=== PATIENT | male | born 1980 ===

== ENCOUNTER → 2021-01-28 | Outpatient (CLI) | payer BC ==
[2021-01-28] VITALS (7 sets, daily range): BP systolic 124–152; BP diastolic 78–90; PULSE 52–60
[~2021-01-28] VITALS: Ht 177.8 cm; Wt 90.3 kg
[~2021-01-28] MED LIST: PREDNISONE 5MG5 MG PO
[2021-01-28 10:30] LABS: INR 1.2 (0.8-3.0); PROTHROMBIN TIME 12.8 SECONDS (9.7-12.8)
--- NOTE | 2021-01-28 10:55 | NUR ---
pt in CT scanner positioned supine for biopsy, Dr Diana in room
--- NOTE | 2021-01-28 11:05 | NUR ---
liver tissue x2 gotten by Dr. Diana put in formulin. Gelfoam used, bandaid over site, pt sits up and transfers to w/c
--- NOTE | 2021-01-28 13:00 | NUR ---
Pt discharged amb. with to car
== END ==
LOC: COL.RAD 09:00
PROVIDERS: Internal Medicine Gastroenterology
DX: R74.8 Abnormal levels of other serum enzymes (principal); D69.3 Immune thrombocytopenic purpura; R76.8 Other specified abnormal immunological findings in serum; M05.79 Rheumatoid arthritis with rheumatoid factor of multiple sites without organ or systems involvement

== ENCOUNTER → 2024-05-30 | Outpatient (CLI) | payer BC ==
[2024-05-30] VITALS (11 sets, daily range): BP systolic 115–147; BP diastolic 78–95; PULSE 54–69; TEMP 98
[~2024-05-30] VITALS: Ht 177.8 cm; Wt 90.6 kg
[~2024-05-30] MED LIST changes: +BENADRYL25 M2 PO; +ORENCIA CL125 MG/1 M SQ
[2024-05-30 06:57] LABS: INR 1.1 (0.8-3.0); PROTHROMBIN TIME 12.3 SECONDS (9.7-12.8)
--- NOTE | 2024-05-30 08:29 | NUR ---
0820--PATIENT STATES HE HAS 5/10 RIGHT SHOULDER PAIN. CALLED DR. HOWELL TO ALERT HIM. DR. HOWELL GAVE VERBAL ORDER--SEE ARNULFO.
--- NOTE | 2024-05-30 08:35 | NUR ---
SPECIMEN COLLECTED AT 0758.
--- NOTE | 2024-05-30 09:27 | NUR ---
PATIENT COMPLETED HIS ONE HOUR RECOVERY TIME REQUESTED BY DR. HOWELL. PATIENT IS AWAKE AND ALERT AND THE BANDAGE REMAINS CLEAN, DRY, AND INTACT. PATIENT SAYS HIS PAIN IS 1/10 NOW AND THAT HE FEELS "MUCH BETTER." IV REMOVED WITHOUT ISSUE AND PATIENT GOT DRESSED BY HIMSELF. HE STATES THAT HE ONLY FELT A LITTLE LIGHTHEADED AT THE BEGINNING OF RECOVERY BUT THAT HE FEELS MUCH BETTER NOW AND IS NO LONGER LIGHT HEADED. ALL NEEDS AT THIS TIME MET. ESCORTED PATIENT TO PATIENT ENTRANCE VIA WHEELCHAIR WITH ALL OF HIS ITEMS AND PATIENT GOT INTO THE FRONT PASSENGER SEAT OF HIS RIDE INDEPENDENTLY. ALL NEEDS MET.
== END ==
LOC: COL.RAD 06:17
PROVIDERS: Radiology Diagnostic Radiology
DX: K76.0 Fatty (change of) liver, not elsewhere classified (principal); R79.89 Other specified abnormal findings of blood chemistry; R76.8 Other specified abnormal immunological findings in serum; D69.3 Immune thrombocytopenic purpura; M06.9 Rheumatoid arthritis, unspecified; Z87.898 Personal history of other specified conditions